=== PATIENT | female | born 2000 | race Two or more races ===

== ENCOUNTER 2024-08-16 03:49 | Emergency (ER) | payer OTHER ==
[~2024-08-16] VITALS: Ht 162.6 cm; Wt 91.0 kg
[2024-08-16 04:33] VITALS: BP 135/86; PULSE 103; RESP 20; TEMP 99.7; O2SAT 97
[2024-08-16] MEDS: LIDOCAINE 1% HCL (LOCAL ANESTH.) INJ 20ML MDV ID ONE (04:33)
--- NOTE | 2024-08-16 05:10 | ED.PDOC ---
HPI Comments C/C: PATIENT STATES THAT SHE WAS PETTING HER FAMILIES FULL GROWN, CANE CABRERA DOG, IT BIT HER ON THE LIP. LIP IS SPLIT OPEN ON THE RIGHT UPPER LIP HR: 125, ALL OTHER VSS. A&OX4. PATIENT STATES THAT SHE DID DRINK ALCOHOL TODAY. 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 History Family History Family History: Unknown Social History Smoker: Non-Smoker Alcohol: Occasionally Drugs: Denies Drug Use Constitutional: denies: chills, diaphoresis, fatigue, fever, malaise, sweats, weakness, others EENTM: denies: blurred vision, double vision, ear bleeding, ear discharge, ear drainage, ear pain, ear ringing, eye pain, eye redness, hearing loss, mouth pain, mouth swelling, nasal discharge, nose bleeding, nose congestion, nose pa in, photophobia, tearing, throat pain, throat swelling, voice changes, others Respiratory: denies: cough, hemoptysis, orthopnea, SOB at rest, shortness of breath, SOB with excertion, stridor, wheezing, others Cardiovascular: denies: chest pain, dizzy spells, diaphoresis, Dyspnea on exertion, edema, irregular heart beat, left arm pain, lightheadedness, palpitations, PND, syncope, others Gastrointestinal: denies: abdomen distended, abdominal pain, blood streaked bowels, constipated, diarrhea, dysphagia, difficulty swallowing, hematemesis, melena, nausea, poor appetite, poor fluid intake, rectal bleeding, rectal pain, vomiting, others Genitourinary: denies: abnormal vagina bleeding, burning, dyspareunia, dysuria, flank pain, frequency, hematuria, incontinence, pain, , vagina discharge, urgency, others Neurological: denies: dizziness, fainting, headache, left sided numbness, left sided weakness, numbness, paresthesia, pre-existing deficit, right sided numbness, right sided weakness, seizure, speech problems, tingling, tremors, weakness, others Musculoskeletal: denies: back pain, gout, joint pain, joint swelling, muscle pain, muscle stiffness, neck pain, others Integumetry: reports: laceration (FULL-THICKNESS LACERATION TOP UPPER LIP); denies: bruises, change in color, change in hair/nails, dryness, lesions, lumps, rash, wounds, others Allergic/Immunocompromised: denies: Difficulty Healing, Frequent Infections, Hives, Itching, others Hematologic/Lymphatic: denies: anemia, blood clots, easy bleeding, easy bruising, swollen glands, others Endocrine: denies: excessive hunger, excessive sweating, excessive thirst, excessive urination, flushing, intolerance to cold, intolerance to heat, unexplained weight gain, unexplained weight loss, others Psychiatric: denies: anxiety, bipolar disorder, depression, hopeless, panic disorder, schizophrenia, sleepless, suicidal, others Physical Exam General Appearance: No Apparent Distress, Normal HEENT: Pharynx Normal Neck: Full Range of Motion, Non-Tender Respiratory: Lungs Clear, No Respiratory Distress, Normal Breath Sounds Cardiovascular: No Murmur, Normal Peripheral Pulses, Regular Rate/Rhythm Breast Exam: Deferred Gastrointestinal: Non Tender, Soft Genitalia: Deferred Pelvic: Deferred Rectal: Deferred Extremities: Normal capillary refill, Normal inspection, Normal range of motion, Non-tender, No pedal edema Musculoskeletal : Apperance: Normal Neurologic: Alert, noc analyst II-XII nml as Tested, No Motor Deficits, Normal Affect, Normal Mood, No Sensory Deficits Cerebellar Function: Normal Reflexes: Normal Skin: Dry, Lacerations (1.5 LACERATION UPPER LIP RIGHT SIDE FULL-THICKNESS ACROSS MARGIN NO NOTED OBVIOUS FOREIGN BODY BLEEDING CONTROLLED ), Normal Color, Warm Lymphatic: No Adenopathy Was a procedure done? Was a procedure done?: Yes Sedation Sedation?: No Informed consent obtained: Yes Laceration Repair : Location UPPER LIP Length 1.5 CM Anesthetic: Lidocaine, Without epi Laceration Repair Prep: Saline Laceration Repair Wound Comple: epidermis/dermis repair Laceration Repair: Number of sutures (5), Simple Informed consent obtained: Yes Risks, benefits, and alternati: Yes Notes PATIENT TOLERATED WELL MINIMAL BLOOD LOSS WOUND CLEANSED AND FLUSHED WITH NORMAL SALINE Differential diagnosis Suture Removal: Cellulitis Generic Laceration: Hematoma, Retained Foriegn Body, Neurovascular Injury, Tendon Injury X-Ray, Labs, Meds, VS Vital Signs Date Time Temp Pulse Resp B/P (MAP) Pulse Ox O2 Delivery O2 Flow Rate FiO2 08/16/24 04:33 99.7 103 20 135/86 (102) 97 99.7 08/16/24 04:33 103 20 97 Room Air 08/16/24 04:03 99.7 125 20 135/99 (111) 97 99.7 Current Medications Medications (Trade) Dose Ordered Sig/Cate Route Start Time Stop Time Status Last Admin Diphtheria/ Tetanus/Acell Pertussis (Boostrix T-Dap) 0.5 ml ONCE ONCE IM 08/16/24 05:15 08/16/24 05:16 DC 08/16/24 05:23 X-Ray, Labs, Meds, VS Comment PROCEDURE NOTE. SCRIPT AUGMENTIN TWICE DAILY X7 DAYS PROPHYLACTICALLY. MEDICATIONS PRESCRIBED SIDE EFFECTS DISCUSSED. PATIENT GOT INTERNAL ABSORBABLE SUTURES ALONG WITH 3 NON ABSORBABLE SUTURES ADVISED TO HAVE WOUND RE- EVALUATED IN 2 DAYS SUTURE REMOVAL IN 5-7 DAYS. [id number] TYLENOL OR MOTRIN NEEDED FOR THE PAIN PER LABELED DOSING INSTRUCTIONS. ER RETURN PRECAUTIONS FOR UNCONTROLLED BLEEDING OR SIGNS AND SYMPTOMS OF INFECTION PATIENT INDICATES UNDERSTANDING AGREES WITH DISCHARGE PLAN OF CARE Time of 1ST Reevaluation: 05:08 Reevaluation 1ST: Improved Patient Education/Counseling: Diagnosis, Treatment, Prognosis, Need For Follow Up Family Education/Counseling: Diagnosis, Treatment, Prognosis, Need For Follow Up Departure 1 Departure Time of Disposition: 05:11 Impression: Primary Impression: Lip laceration Qualified Codes: S01.511A - Laceration without foreign body of lip, initial encounter Disposition: HOME / SELF CARE / HOMELESS Condition: Stable e-Prescriptions Amoxicillin & Pot Clavulanate (AUGMENTIN TABLET) 875 Mg Tb 875 MG PO BID for 7 Days, #14 TAB Prov: RHETT BOLANOS 08/16/24 Discharged With: Spouse Critical Care Note Critical Care Time?: No Stability Stability form required: RHETT Betts Aug 16, 2024 05:10
[2024-08-16] MEDS ORDERED: AUG875T PO (05:13)
[2024-08-16] MEDS: TETANUS-DIPTH-ACEL PERTUSSIS 0.5ML SYR Tdap IM ONE (05:23)
== END 2024-08-16 05:30 | disposition home or self-care (01) ==
LOC: ER 03:49
DX: S01.511A Laceration without foreign body of lip, initial encounter (principal); Z88.1 Allergy status to other antibiotic agents; W54.0XXA Bitten by dog, initial encounter; Y93.89 Activity, other specified; Y92.89 Other specified places as the place of occurrence of the external cause; Y99.8 Other external cause status
CPT/HCPCS: 12011; 90471; 90715; 99283; J2003